=== PATIENT | female | born 1995 ===

== ENCOUNTER → 2025-06-22 | Outpatient (CLI) | payer SELFPAY ==
[2025-06-24 17:24] LABS: MUMPS VIRUS ANTIBODY,IGG 193.0 AU/mL
[2025-06-24 17:38] LABS: MEASLES,RUBEOLA,ANTIBODY IGG 211.0 AU/mL
[2025-06-24 23:04] LABS: VARICELLA-ZOSTER VIRUS AB,IGG 23.2 S/CO (<=0.99); VARICELLA-ZOSTER VIRUS AB,IGM 0.68 ISR (<=0.90)
[2025-06-25 01:26] LABS: QUANTIFERON MITOGEN MINUS NIL 9.37 IU/mL; QUANTIFERON NIL 0.63 IU/mL; QUANTIFERON PLUS TB1 MINUS NIL 0.00 IU/mL (<=0.34); QUANTIFERON PLUS TB2 MINUS NIL 0.00 IU/mL (<=0.34)
== END ==
LOC: LAB SHORT 19:16 → LAB 19:16
PROVIDERS: Family Medicine; Hospitalist
DX: R76.0 Raised antibody titer (principal); Z11.1 Encounter for screening for respiratory tuberculosis
CPT/HCPCS: 86480; 86735; 86762; 86765; 86787

== ENCOUNTER → 2025-07-16 | Outpatient (CLI) | payer OTHER | END | disposition home or self-care (01) | LOC: LAB 17:53 → LAB SHORT 17:53 | DX: Z11.3 Encounter for screening for infections with a predominantly sexual mode of transmission (principal) | CPT/HCPCS: 86592 ==